=== PATIENT | female | born 1995 | race Two or more races ===

== ENCOUNTER 2025-02-09 10:15 | Inpatient (IN) | payer OTHER ==
[~2025-02-09] VITALS: Ht 121.9 cm; Wt 70.3 kg
[2025-02-09] MEDS ORDERED: COZAAR25 MG PO (11:09)
[2025-02-09] MEDS ORDERED: TOPROL XL50 M1 PO (11:09)
[2025-02-09] MEDS ORDERED: MILLIPRED5 MG PO (11:10)
[2025-02-09] MEDS ORDERED: PEPCID AC10 MG (11:11)
[2025-02-09] MEDS ORDERED: PLAQUENIL (11:11)
[2025-02-09] MEDS ORDERED: CELLCEPT500 M1 (11:12)
[2025-02-09] MEDS ORDERED: ENVARSUS XR0.75 MG (11:12)
[2025-02-09 11:13] VITALS: BP 116/78
[2025-02-17] MEDS ORDERED: DEXAMETHASONE SODIUM PHOSPHATE 4 MG/ML VIAL ONE (09:25)
[2025-02-17] MEDS ORDERED: MYCOPHENOLATE500 MG (10:30)
[2025-02-17] MEDS ORDERED: TACROLIMUS1 MG (10:30)
[2025-02-17] MEDS ORDERED: HYDROXYCHLOROQ200 MG (10:30)
[2025-02-17] MEDS ORDERED: RAYOS5 MG (10:30)
[2025-02-17] MEDS ORDERED: ENALAPRILAT DIHYDRATE 1.25 MG/ML VIAL IV PRN (11:45)
[2025-02-17] MEDS ORDERED: ONDANSETRON HCL 2 MG/ML VIAL IV PRN (11:45)
[2025-02-17] MEDS ORDERED: MORPHINE SULFATE 4 MG/ML VIAL IV ONE (12:45)
[2025-02-17 14:00] VITALS: BP 123/74; O2SAT 95
[2025-02-17 16:20] VITALS: BP 127/81; O2SAT 95
[2025-02-17] MEDS ORDERED: TRAMADOL HCL 50 MG TABLET PO SCH (17:00)
[2025-02-17] MEDS ORDERED: ACETAMINOPHEN 500 MG GEL..CAP PO SCH (17:00)
[2025-02-17] MEDS ORDERED: GABAPENTIN 100 MG CAPSULE PO SCH (17:00)
[2025-02-17] MEDS ORDERED: PANTOPRAZOLE SODIUM 40 MG/VIAL VIAL IV PUSH SCH (21:00)
[2025-02-17] MEDS ORDERED: Calcium Carbonate 1 TAB TABLET PO SCH (21:00)
[2025-02-18 01:01] VITALS: BP 103/68; O2SAT 95
[2025-02-18] MEDS ORDERED: LEVOTHYROXINE SODIUM 112 MCG TABLET PO SCH (06:00)
[2025-02-18] MEDS ORDERED: METOPROLOL SUCCINATE 25 MG TAB.SR.24H PO SCH (09:00)
[2025-02-18] MEDS ORDERED: CYCLOBENZAPRINE HCL 5 MG TABLET PO SCH (09:00)
[2025-02-18] MEDS ORDERED: LOSARTAN POTASSIUM 25 MG TABLET PO SCH (09:00)
[2025-02-18] MEDS ORDERED: PREDNISONE 5 MG TABLET PO SCH (09:00)
[2025-02-18 09:36] VITALS: BP 134/87; O2SAT 97
== END 2025-02-18 14:41 | disposition home or self-care (01) | DRG 627 ==
LOC: O/R 02-17 07:03 → SURG 02-17 07:03
PROVIDERS: ADMIT Surgery; ATTEND Surgery
PROC: 0GTK0ZZ Resection of Thyroid Gland, Open Approach (ICD-10-PCS; principal; 2025-02-17 15:15)
DX: C73 Malignant neoplasm of thyroid gland (principal)